=== PATIENT | female | born 1955 | race Caucasian/White ===

== ENCOUNTER 2024-06-27 12:40 | Outpatient (CLI) | payer MEDICARE, SELFPAY ==
--- OUTSIDE RECORDS SUMMARY | 2024-06-27 12:44 | XMS_ITS | Patient Health Summary ---
Author Organization [facility] Address [address] [address] Care Team Providers Care Group Exercise Manager Name Role Phone Unavailable Primary Care Provider Unavailabl e Note from [facility],non-owned Affiliates and Associated Physician Practices is amultiple site organization consisting of ambulatory clinics and hospital sitesin [place], [place], [place] and [place]. This disclosure is being madepursuant to the Care Everywhere program and may not contain all information available regarding this patient. Last updated 18.[facility] [employer] Social History Tobacco Use Types Packs/Day Years Used Date Smoking Tobacco: Never Assessed Sex and Gender Information Value Date Recorded Sex Assigned at Not on file Gender Identity Not on file Sexual Orientation Not on file Procedures * US BREAST RIGHT LTD(Performed 04/13/2021) Performed for Abnormal mammogram * MAMMO RIGHT DIAGNOSTIC W THEODORE(Performed 04/13/2021) Performed for Abnormal mammogram * MAMMO BILAT SCREENING W THEODORE(Performed 03/27/2021) Performed for Breast cancer screening by mammogram * HEMOGLOBIN A1C(Performed 03/07/2018) * LIPID PROFILE(Performed 03/07/2018) * GLUCOSE VITALITY(Performed 03/07/2018) * VITALITY SCREEN (BEAKER)(Performed 03/17/2017) * LIPID PROFILE(Performed 03/17/2017) * HEMOGLOBIN A1C(Performed 03/17/2017) * GLUCOSE VITALITY(Performed 03/17/2017) * HEMOGLOBIN A1C(Performed 03/22/2016) * VITALITY SCREEN (BEAKER)(Performed 03/22/2016) * LIPID PROFILE(Performed 03/22/2016) * GLUCOSE VITALITY(Performed 03/22/2016) * HEMOGLOBIN A1C(Performed 03/19/2015) * VITALITY SCREEN (BEAKER)(Performed 03/19/2015) * LIPID PROFILE(Performed 03/19/2015) * GLUCOSE VITALITY(Performed 03/19/2015) * HEMOGLOBIN A1C(Performed 03/29/2014) * VITALITY SCREEN (BEAKER)(Performed 03/29/2014) * GLUCOSE VITALITY(Performed 03/29/2014) * LIPID PROFILE(Performed 03/29/2014) Results * US BREAST RIGHT LTD (04/13/2021 10:06 AM BLACKSMITH HELPER) Anatomical Region Laterality Modality Breast Right Mammography 04/13/2021 9:52 AM BLACKSMITH HELPER Impressions 04/13/2021 10:03 AM BLACKSMITH HELPER IMPRESSION: No right mammographic or targeted sonographic evidence of malignancy. RECOMMENDATION: Screening mammography recommended in one year, pending no interval breast concerns. Dr. Ford discussed the examination findings and recommendations with the patient at the time of the examination. OVERALL ASSESSMENT: BI-RADS CATEGORY 1: NEGATIVE. This report was electronically signed by LEISA FORD M.D. on 04/13/2021 10:03 AM . Narrative 04/13/2021 10:03 AM BLACKSMITH HELPER EXAMINATIONS: 1. DIGITAL MAMMO RIGHT DIAGNOSTIC W THEODORE WITH CAD AND 2. LIMITED RIGHT BREAST ULTRASOUND (COMBINED REPORT) DATE OF EXAM: 04/13/2021 HISTORY: Follow-up to an abnormal screening mammogram. Asymmetry in the superior right breast on the MLO view. Lifetime risk of developing breast cancer was calculated at 7 percent on risk assessment performed 03/27/2021. COMPARISON: Recent screening mammogram dated 03/27/2021. This was her baseline exam. MAMMOGRAM: TECHNIQUE: Diagnostic right mammography was performed. Tomosynthesis (3-D) and reconstructed C - view (synthetic 2-D) images acquired. Images acquired in the true lateral and MLO projections. MLO spot compression tomosynthesis (3D) and C-view (synthetic 2D) views also obtained. A total of 3 images were obtained. Computer-aided detection (CAD) was utilized. BREAST COMPOSITION: Category B: There are scattered areas of fibroglandular density. FINDINGS: There is no suspicious finding, mass, or evidence of malignancy. The area in question on the prior exam is felt to represent normal parenchymal tissue. LIMITED RIGHT BREAST ULTRASOUND: Ultrasound of the superior aspect of the breast was performed. Scanning performed from the 11 to the 2 o'clock areas. FINDINGS: Ultrasound is normal. There is no cystic or solid mass. No abnormality.. Scotty Ramirez MD US ORDERABLES * MAMMO RIGHT DIAGNOSTIC W THEODORE (04/13/2021 9:42 AM BLACKSMITH HELPER) Anatomical Region Laterality Modality Breast Right Mammography 04/13/2021 9:52 AM BLACKSMITH HELPER Impressions 04/13/2021 10:03 AM BLACKSMITH HELPER IMPRESSION: No right mammographic or targeted sonographic evidence of malignancy. RECOMMENDATION: Screening mammography recommended in one year, pending no interval breast concerns. Dr. Ford discussed the examination findings and recommendations with the patient at the time of the examination. OVERALL ASSESSMENT: BI-RADS CATEGORY 1: NEGATIVE. This report was electronically signed by LEISA FORD M.D. on 04/13/2021 10:03 AM . Narrative 04/13/2021 10:03 AM BLACKSMITH HELPER EXAMINATIONS: 1. DIGITAL MAMMO RIGHT DIAGNOSTIC W THEODORE WITH CAD AND 2. LIMITED RIGHT BREAST ULTRASOUND (COMBINED REPORT) DATE OF EXAM: 04/13/2021 HISTORY: Follow-up to an abnormal screening mammogram. Asymmetry in the superior right breast on the MLO view. Lifetime risk of developing breast cancer was calculated at 7 percent on risk assessment performed 03/27/2021. COMPARISON: Recent screening mammogram dated 03/27/2021. This was her baseline exam. MAMMOGRAM: TECHNIQUE: Diagnostic right mammography was performed. Tomosynthesis (3-D) and reconstructed C - view (synthetic 2-D) images acquired. Images acquired in the true lateral and MLO projections. MLO spot compression tomosynthesis (3D) and C-view (synthetic 2D) views also obtained. A total of 3 images were obtained. Computer-aided detection (CAD) was utilized. BREAST COMPOSITION: Category B: There are scattered areas of fibroglandular density. FINDINGS: There is no suspicious finding, mass, or evidence of malignancy. The area in question on the prior exam is felt to represent normal parenchymal tissue. LIMITED RIGHT BREAST ULTRASOUND: Ultrasound of the superior aspect of the breast was performed. Scanning performed from the 11 to the 2 o'clock areas. FINDINGS: Ultrasound is normal. There is no cystic or solid mass. No abnormality.. Scotty Ramirez MD MAMMO ORDERABLES * MAMMO BILAT SCREENING W THEODORE (03/27/2021 12:03 PM BLACKSMITH HELPER) Anatomical Region Laterality Modality Breast Bilateral Mammography 04/07/2021 12:5 3 PM BLACKSMITH HELPER Impressions 04/07/2021 1:03 PM BLACKSMITH HELPER IMPRESSION: 1. Asymmetry in the superior right breast on the MLO view. 2. Negative left mammogram. RECOMMENDATION: Diagnostic right mammogram. If indicated at that time, right breast ultrasound will be performed. Patient will be contacted and scheduled to return for the additional imaging. OVERALL ASSESSMENT: BI-RADS CATEGORY 0: INCOMPLETE: NEED ADDITIONAL IMAGING EVALUATION. This report was electronically signed by LEISA FORD M.D. on 04/07/2021 1:03 PM . Narrative 04/07/2021 1:03 PM BLACKSMITH HELPER EXAM: DIGITAL MAMMO BILAT SCREENING W THEODORE AND WITH CAD DATE OF EXAM: 03/27/2021 HISTORY: Screening. RISK ASSESSMENT CALCULATION: Patient completed a breast cancer risk assessment during her appointment. Based upon the information she provided and her mammographic breast density, her lifetime risk of developing breast cancer is 7 % (Average Risk <15%; Intermediate / Moderate Risk 15-19%; High Risk > 20%). COMPARISON: Prior mammogram 06/04/2008 from [facility]. TECHNIQUE: Tomosynthesis (3-D) and reconstructed C - view (synthetic 2-D) images acquired and reviewed in the bilateral craniocaudal and mediolateral oblique projections. A total of 4 images were obtained. Mole marker was placed on the left breast. Computer-aided detection (CAD) was utilized. BREAST COMPOSITION: Category B: There are scattered areas of fibroglandular density. FINDINGS: Right breast: Asymmetry in the superior breast on the MLO view, 3.7 cm from the nipple. No suspicious microcalcifications. Left breast: No suspicious findings or evidence of malignancy. No change from the prior. Provider Unknown MAMMO ORDERABLES * GLUCOSE VITALITY (03/07/2018 10:30 AM CDT) Only the most recent of5 resultswithin the time period is included. Glucose 93 70 - 115 mg/dL 03/07/2018 11:22 AM CDT [facility] Blood 03/07/2018 10:3 0 AM CDT 03/07/2018 10:49 AM CDT Ordering Provider Unlisted LAB - CHEM ISTRY ORDERABLES [address] [phone] * HEMOGLOBIN A1C (03/07/2018 10:30 AM CDT) Only the most recent of5 resultswithin the time period is included. Hemoglobin A1c 5.7 4.4 - 6.3 % 03/07/2018 1:04 PM CDT [facility] Estimated Average Glucose 117 mg/dL 03/07/2018 1:04 PM CDT [facility] Comment: HbA1c Interpretation: Treatment target values recommended by ADA and other clinical organizations should be used to evaluate metabolic control in patients. Treatment Target Values: Normal : < 5.7% Pre-diabetes: 5.7-6.4% Diabetes: Equal to or greater than 6.5% Reference: [place] Diabetes Association Standards of Care in Diabetes -2014 In patients 70 years and older consider HbA1c target range of 7.0-7.5% Reference: Diabetes Mellitus in Older People: Position Statement on behalf of the International Association of Gerontology and Geriatrics (IAGG), the Diabetes Working Green Party for Older People (EDWPOP), and the International Task Force of Experts in Diabetes. Logan Terrell, et al. J [place] [employer] Association. 2012 Test results diagnostic of diabetes should be repeated for confirmation. The Tosoh G8 assay for the measurement of HbA1c is a National Glycohemoglobin Standardization Program (NGSP)certified method. Results for patients with HbE disease should be interpreted with caution as this hemoglobinopathy has been shown to interfere with the Tosoh G8 assay. Blood 03/07/2018 10:3 0 AM CDT 03/07/2018 10:49 AM CDT Ordering Provider Unlisted LAB - CHEM ISTRY ORDERABLES [address] [phone] * (ABNORMAL) LIPID PROFILE (03/07/2018 10:30 AM CDT) Only the most recent of5 resultswithin the time period is included. Cholesterol Total 274(H) <200 mg/dL 03/07/2018 11:51 AM [facility] HDL 58 >40 mg/dL 03/07/2018 11:51 AM [facility] Comment: ATP III Classification of HDL Cholesterol: <40 mg/dL: Considered a major risk factor. >60 mg/dL: Considered a negative risk factor. LDL Calculated 190(H) <100 mg/dL 03/07/2018 11:51 AM T [facility] Comment: ATP III Classification of LDL Cholesterol: <100 mg/dL: Optimal 100 - 129 mg/dL: Near Optimal/Above Optimal 130 - 159 mg/dL: Borderline High 160 - 189 mg/dL: High >190 mg/dL: Very High Triglycerides 130 <150 mg/dL 03/07/2018 11:51 AM [facility] Comment: ATP III Classification of Triglycerides: <150 mg/dL: Normal 150 - 199 mg/dL: Borderline High 200 - 400 mg/dL: High >500 mg/dL: Very High Blood 03/07/2018 10:3 0 AM CDT 03/07/2018 10:49 AM CDT Ordering Provider Unlisted LAB - CHEM ISTRY ORDERABLES [address] [phone] * VITALITY SCREEN (WALDEMAR) (03/17/2017 11:14 AM BLACKSMITH HELPER) Only the most recent of4 resultswithin the time period is included. Blood specimen (specimen) BLOOD SPECIMEN / Unknown 03/17/2017 11:14 AM BLACKSMITH HELPER Narrative [facility] - 03/17/2017 2:11 PM BLACKSMITH HELPER The following orders were created for panel order [facility] Vitality Screening. Procedure Abnormality Status --------- ------ Hemoglobin A1c[[id number]] Final result Fasting Glucose[[id number]] Normal Final result Lipid Panel[[id number]] Abnormal Final result Please view results for these tests on the individual orders. Historical Provider LAB - CHEMISTRY O RDERABLES Performing Organization Address City/State/[facility] Co de Phone Number [facility] [address] [place] [address], [facility]
--- OUTSIDE RECORDS SUMMARY | 2024-06-27 12:44 | XMS_ITS | Referral Summary ---
Author Organization [facility] Address [address] [place] [address] Care Team Providers Care Regional Refrigerated Cdl Truck Driver Name Role Phone Unavailable Primary Care Provider Unavailabl e Source Comments [facility],non-owned Affiliates and Associated Physician Practices is amultiple site organization consisting of ambulatory clinics and hospital sitesin [place], [place], [place] and [place]. This disclosure is being madepursuant to the Care Everywhere program and may not contain all information available regarding this patient. Last updated 18.[facility] [employer] Social History Tobacco Use Types Packs/Day Years Used Date Smoking Tobacco: Never Assessed Sex and Gender Information Value Date Recorded Sex Assigned at Not on file Gender Identity Not on file Sexual Orientation Not on file Plan of Treatment Not on file Procedures Procedure Name Priority Date/Time Associated Diagnosis Comments MAMMO BILAT SCREENING W THEODORE Routine 03/27/2021 12:03 PM PANTOGRAPH WATCHER Breast cancer screening by mammogram LIPID PROFILE Routine 03/07/2018 10:30 AM CDT from Last 3 Months or Most Recently Relevant to Health Maintenance Results * MAMMO BILAT SCREENING W THEODORE (03/27/2021 12:03 PM PANTOGRAPH WATCHER) Anatomical Region Laterality Modality Breast Bilateral Mammography 04/07/2021 12:5 3 PM PANTOGRAPH WATCHER Impressions 04/07/2021 1:03 PM PANTOGRAPH WATCHER IMPRESSION: 1. Asymmetry in the superior right [...] 1:03 PM . Narrative 04/07/2021 1:03 PM PANTOGRAPH WATCHER EXAM: DIGITAL MAMMO BILAT SCREENING W THEODORE [...] > 20%). COMPARISON: Prior mammogram 06/04/[address] [facility]. TECHNIQUE: Tomosynthesis (3-D) and reconstructed C - [...] the prior. Provider Unknown MAMMO ORDERABLES * (ABNORMAL) LIPID PROFILE (03/07/2018 10:30 AM [facility]) Cholesterol Total 274(H) <200 mg/dL 03/07/2018 11:51 AM [facility] HDL 58 >40 mg/dL 03/07/2018 11:51 AM [facility] Comment: ATP III Classification of HDL Cholesterol: <40 mg/dL: Considered a major risk factor. >60 mg/dL: Considered a negative risk factor. LDL Calculated 190(H) <100 mg/dL 03/07/2018 11:51 AM [facility] Comment: ATP III Classification of LDL Cholesterol: <100 mg/dL: Optimal 100 - 129 mg/dL: Near Optimal/Above Optimal 130 - 159 mg/dL: Borderline High 160 - 189 mg/dL: High >190 mg/dL: Very High Triglycerides 130 <150 mg/dL 03/07/2018 11:51 AM [facility] Comment: ATP III Classification of Triglycerides: <150 mg/dL: Normal 150 - 199 mg/dL: Borderline High 200 - 400 mg/dL: High >500 mg/dL: Very High Blood 03/07/2018 10:3 0 AM CDT 03/07/2018 10:49 AM CDT Ordering Provider Unlisted LAB - CHEM ISTRY ORDERABLES Performing Organization Address City/State/[facility] Co de Phone Number [address] [phone] from Last 3 Months or Most Recently Relevant to Health Maintenance
--- OUTSIDE RECORDS SUMMARY | 2024-06-27 12:44 | XMS_ITS | Clinical Summary ---
Author Organization [facility] Address [address] [place] [address] Care Team Providers Care Leather Colorer Name Role Phone Unavailable Primary Care Provider Unavailabl e Source Comments [facility],non-owned Affiliates and Associated Physician Practices is amultiple site organization consisting of ambulatory clinics and hospital sitesin [place], [place], [place] and [place]. This disclosure is being madepursuant to the Care Everywhere program and may not contain all information available regarding this patient. Last updated 18.[facility] [employer] Social History Tobacco Use Types Packs/Day Years Used Date Smoking Tobacco: Never Assessed Sex and Gender Information Value Date Recorded Sex Assigned at Not on file Gender Identity Not on file Sexual Orientation Not on file Plan of Treatment Health Maintenance Due Date Last Done Comments BONE DENSITY TESTING 1954 COLOGUARD (AGES 45-75) - COLON CA SCREENING 1954 COLON MONITORING 1954 COLONOSCOPY - COLON CA SCREENING 1954 CT COLONOGRAPHY - COLON CA SCREENING 1954 Colorectal Cancer Screening 1954 FIT - COLON CA SCREENING 1954 FLEX SIG - COLON CA SCREENING 1954 HEPATITIS C SCREENING 11/19/1972 DTAP/TDAP/TD VACCINES (1 - Tdap) 1973 PNEUMOCOCCAL VACCINE 50+ (1 of 1 - PCV) 2004 ZOSTER VACCINE (1 of 2) 2004 LIPID TESTING 03/07/2023 03/07/2018, 11/0 01/2017, 03/22/2016, Additional history exists MAMMOGRAM 03/27/2023 03/27/2021 COVID-19 VACCINE (1 - season) 2024 INFLUENZA VACCINE (#1) 2024 DEPRESSION SCREENING 05/09/2024 Respiratory Syncytial Virus (RSV) Vaccine Pt: or over 60 yrs (1 - 1-dose 75+ series) 2029 HEPATITIS B VACCINE Aged Out No longe r eligible based on patient's age to complete this topic HIB VACCINE Aged Out No longer eligi ble based on patient's age to complete this topic HPV VACCINE Aged Out No longer eligi ble based on patient's age to complete this topic MENINGOCOCCAL (Group B) VACCINE Aged Out No longer eligible based on patient's age to complete this topic MENINGOCOCCAL VACCINE Aged Out No oksana helen eligible based on patient's age to complete this topic Procedures Procedure Name Priority Date/Time Associated Diagnosis Comments MAMMO BILAT SCREENING W THEODORE Routine 03/27/2021 12:03 PM DOCUMENTUM CONSULTANT Breast cancer screening by mammogram LIPID PROFILE Routine 03/07/2018 10:30 AM CDT from Last 3 Months or Most Recently Relevant to Health Maintenance Results * MAMMO BILAT SCREENING W THEODORE (03/27/2021 12:03 PM DOCUMENTUM CONSULTANT) Anatomical Region Laterality Modality Breast Bilateral Mammography 04/07/2021 12:5 3 PM DOCUMENTUM CONSULTANT Impressions 04/07/2021 1:03 PM DOCUMENTUM CONSULTANT IMPRESSION: 1. Asymmetry in the superior right [...] 1:03 PM . Narrative 04/07/2021 1:03 PM DOCUMENTUM CONSULTANT EXAM: DIGITAL MAMMO BILAT SCREENING W THEODORE [...] > 20%). COMPARISON: Prior mammogram 06/04/2008 from [facility]. TECHNIQUE: Tomosynthesis (3-D) and reconstructed C [...] (ABNORMAL) LIPID PROFILE (03/07/2018 10:30 AM CDT) Cholesterol Total 274(H) <200 mg/dL 03/07/2018 11:51 AM [facility] HDL 58 >40 mg/dL 03/07/2018 11:51 AM T [facility] Comment: ATP III Classification of HDL Cholesterol: <40 mg/dL: Considered a major risk factor. >60 mg/dL: Considered a negative risk factor. LDL Calculated 190(H) <100 mg/dL 03/07/2018 11:51 AM [facility] Comment: ATP III Classification of LDL Cholesterol: <100 mg/dL: Optimal 100 - 129 mg/dL: Near Optimal/Above Optimal 130 - 159 mg/dL: Borderline High 160 - 189 mg/dL: High >190 mg/dL: Very High Triglycerides 130 <150 mg/dL 03/07/2018 11:51 AM [facility] Comment: ATP III Classification of Triglycerides: <150 mg/dL: Normal 150 - 199 mg/dL: Borderline High 200 - 400 mg/dL: High >500 mg/dL: Very High Blood 03/07/2018 10:3 0 AM CDT 03/07/2018 10:49 AM CDT Ordering Provider Unlisted LAB - CHEM ISTRY ORDERABLES [address] [phone] from Last 3 Months or Most Recently Relevant to Health Maintenance
--- OUTSIDE RECORDS SUMMARY | 2024-06-27 12:44 | XMS_ITS | Encounter Summary ---
Author Organization [facility] Address [address] [place] [address] Care Team Providers Care Business Solutions Analyst Name Role Phone Unavailable Primary Care Provider Unavailabl e Encounter Details Date Type Department Care Team (Late st Contact Info) Description 03/07/2018 Lab Requisition [facility] [address] [place] [id number] Unlisted, Ordering Provider, Social History Tobacco Use Types Packs/Day Years Used Date Smoking Tobacco: Never Assessed Sex and Gender Information Value Date Recorded Sex Assigned at Not on file Gender Identity Not on file Sexual Orientation Not on file documented as of this encounter Plan of Treatment Not on file documented as of this encounter Procedures Procedure Name Priority Date/Time Associated Diagnosis Comments GLUCOSE VITALITY Routine 03/07/2018 10:3 0 AM CDT HEMOGLOBIN A1C Routine 03/07/2018 10:30 AM CDT LIPID PROFILE Routine 03/07/2018 10:30 AM CDT documented in this encounter Results * HEMOGLOBIN A1C (03/07/2018 10:30 AM CDT) Hemoglobin A1c 5.7 4.4 - 6.3 % 03/07/2018 1:04 PM CDT [facility] Estimated Average Glucose 117 mg/dL 03/07/2018 1:04 PM CDT [facility] Comment: HbA1c Interpretation: Treatment target values recommended by ADA and other clinical organizations should be used to evaluate metabolic control in patients. Treatment Target Values: Normal : < 5.7% Pre-diabetes: 5.7-6.4% Diabetes: Equal to or greater than 6.5% Reference: [place] [employer] Standards of Care in Diabetes -2014 In patients 70 years and older consider HbA1c target range of 7.0-7.5% Reference: Diabetes Mellitus in Older People: Position Statement on behalf of the International Association of Gerontology and Geriatrics (IAGG), the Diabetes Working Green Party for Older People (EDWPOP), and the International Task Force of Experts in Diabetes. Logan Terrell et al. J [place] [employer]. 2012 Test results diagnostic [...] 03/07/2018 10:49 AM CDT Ordering Provider Unlisted MD LAB - CHEM ISTRY ORDERABLES Performing Organization Address City/State/[facility] Co de Phone Number [address] [phone] * (ABNORMAL) LIPID PROFILE (03/07/2018 10:30 AM CDT) Cholesterol Total 274(H) <200 mg/dL 03/07/2018 11:51 AM [facility] HDL 58 >40 mg/dL 03/07/2018 11:51 AM [facility] Comment: ATP III Classification of HDL Cholesterol: <40 mg/dL: Considered a major risk factor. >60 mg/dL: Considered a negative risk factor. LDL Calculated 190(H) <100 mg/dL 03/07/2018 11:51 AM [facility] Comment: ATP III Classification of LDL Cholesterol: <100 mg/dL: Optimal 100 - 129 mg/dL: Near Optimal/Above Optimal 130 - 159 mg/dL: Borderline High 160 - 189 mg/dL: High >190 mg/dL: Very High Triglycerides 130 <150 mg/dL 03/07/2018 11:51 AM [facility] Comment: ATP III Classification of Triglycerides: <150 mg/dL: Normal 150 - 199 mg/dL: Borderline High 200 - 400 mg/dL: High >500 mg/dL: Very High Blood 03/07/2018 10:3 0 AM CDT 03/07/2018 10:49 AM CDT Ordering Provider Unlisted LAB - CHEM [place] [address], [facility] [phone] * GLUCOSE VITALITY (03/07/2018 10:30 AM CDT) Glucose 93 70 - 115 mg/dL 03/07/2018 11:22 AM CDT [facility] Blood 03/07/2018 10:3 0 AM CDT 03/07/2018 10:49 AM CDT Ordering Provider Unlisted LAB - CHEM ISTRY ORDERABLES Performing Organization Address City/[facility] [place] [address], [facility] [phone] documented in this encounter Visit Diagnoses Not on filedocumented in this encounter
--- NOTE | 2024-06-27 13:15 | NEURO_ITS ---
Impression: # Complains of numbness of left hand. Non-diabetic. ? # Moderate Carpal Tunnel Syndrome. ? # No ulnar neuropathy. ? # Needle/EMG exam mildly abnormal in left abductor pollicis brevis muscle.. Nerve Conduction Studies Anti Sensory Summary Table ?Stim Site NR Peak (ms) P-T Amp (?V) Site1 Site2 Delta-P (ms) Dist (cm) Nakul (m/s) Left Median Anti Sensory (2-3nd Digit) Wrist ? 4.4 5.0 Wrist 2-3nd Digit 4.4 14.0 32 Wrist NR Wrist 2-3nd Digit 4.4 14.0 32 Left Radial Anti Sensory (Base 1st Digit) Wrist ? 1.9 28.9 Wrist Base 1st Digit 1.9 0.0 Left Ulnar Anti Sensory (5th Digit) Wrist ? 2.3 12.4 Wrist 5th Digit 2.3 14.0 61 Motor Summary Table ?Stim Site NR Onset (ms) O-P Amp (mV) Site1 Site2 Delta-0 (ms) Dist (cm) Nakul (m/s) Left Median Motor (Abd Poll Brev) Wrist ? 4.8 1.6 Elbow Wrist 3.5 26.0 74 Elbow ? 8.3 2.2 Left Ulnar Motor (Abd Dig Minimi) Wrist ? 2.3 2.1 A Elbow Wrist 4.6 30.0 65 A Elbow ? 6.9 2.3 F Wave Studies ?NR F-Lat (ms) L-R F-Lat (ms) Left Median (Mrkrs) (Abd Poll Brev) ? 27.62 Left Ulnar (Mrkrs) (Abd Dig Min) ? 27.08 EMG ?Side Muscle Nerve Root Ins Act Fibs Amp Dur Recrt Comment Left 1stDorInt Ulnar C8-T1 Nml Nml Nml Nml Nml Left Ext Indicis Radial (Post Int) C7-8 Nml Nml Nml Nml Nml Left Ext Digitorum Radial (Post Int) C7-8 Nml Nml Nml Nml Nml Left BrachioRad Radial C5-6 Nml Nml Nml Nml Nml Left PronatorTeres Median C6-7 Nml Nml Nml Nml Nml Left Abd Poll Brev Median C8-T1 Nml Nml Decr >12ms +1 Left ABD Dig Min Ulnar C8-T1 Nml Nml Nml Nml Nml MTDD
== END 2024-06-27 12:41 | disposition home or self-care (01) ==
LOC: ANHNEURO 12:41
PROVIDERS: PCP Internal Medicine; Visit Provider Physician Assistant Surgical
DX: G56.02 Carpal tunnel syndrome, left upper limb (principal)
CPT/HCPCS: 95886; 95909